=== PATIENT | female | born 1990 | race American Indian/Alaskan Native ===

== ENCOUNTER 2016-12-27 19:02 | Emergency (ER) | payer OTHER ==
--- NOTE | 2016-12-28 02:01 | Emergency Department Report ---
HPI - General Chief Complaint: Fall Time Seen by Provider: 12/28/16 01:24 - HPI HPI: Patient is a 26-year-old female who's come presents to the ED complaining all fall earlier today. Patient states she was at a friend's house and coming down some steps when she slipped and fell on her butt. Patient she says she fell down about 5 steps. Patient denies loss of consciousness. Patient states she has intermittently, nonradiating, throbbing type pain localized to her lower back. Patient denies fevers/chills/chest pain/shortness of breath/dizziness/abrasions or cuts or any other problems. ED Past Medical Hx - Social History Smoking Status: Current Every Day Smoker Substance Use Type: None - Medications Home Medications: Home Medications Medication Instructions Recorded Confirmed Last Taken Type Clindamycin [Clindamycin CAP] 300 mg PO Q12H #14 capsule 06/22/14 Unknown Rx HYDROcodone/APAP 10-325 [[place] 1 each PO Q6HR PRN #12 tablet 06/22/14 Unknown Rx 10-325 mg TAB] Cyclobenzaprine [Flexeril] 10 mg PO TID PRN #20 tablet 12/28/16 Unknown Rx Ibuprofen [Motrin] 800 mg PO Q8HR PRN #30 tablet 12/28/16 Unknown Rx ED Review of Systems ROS: Stated complaint: FALL/BACK PAIN Other details as noted in HPI Constitutional: denies: chills, fever, weakness Eyes: denies: eye pain, eye discharge, vision change ENT: denies: ear pain, throat pain Respiratory: denies: cough, shortness of breath, wheezing Cardiovascular: denies: chest pain, palpitations Endocrine: no symptoms reported Gastrointestinal: denies: abdominal pain, nausea, diarrhea, melena Genitourinary: denies: urgency, dysuria, frequency, hematuria, discharge Musculoskeletal: denies: back pain, joint swelling, arthralgia Skin: denies: rash, lesions, pruritus Neurological: denies: headache, weakness, numbness, paresthesias, confusion, abnormal gait Psychiatric: denies: anxiety, depression Hematological/Lymphatic: denies: easy bleeding, easy bruising Physical Exam - Physical Exam Vital Signs: Vital Signs 12/27/16 19:47 Temperature 98 F Pulse Rate 90 Respiratory 18 Rate Blood Pressure 122/76 O2 Sat by Pulse 99 Oximetry Physical Exam: GENERAL: Alert and oriented x3, no apparent distress, Normal Gait, atraumatic. HEAD: Head is normocephalic and a-traumatic. EYES: Extra ocular muscles are intact. Pupils are equal, round, and reactive to light and accommodation. EARS: symetrical, gross auditory nml bilaterally. NOSE: Nose symetrical, Nontender,Nares appeared normal. MOUTH:Mouth is well hydrated and without lesions. Patent airways. NECK: Supple. Non edematous, No carotid bruits. No lymphadenopathy or thyromegaly. LUNGS: Symetrical with respiration, No wheezing, no rales or crackles, CTAB. HEART: S1, S2 present, regular rate and rhythm without murmur, no rubs, no gallops. ABDOMEN: No organomegaly was noted,Positive bowel sounds, soft, and non- distended. . Nontender to palpation on all Quadrants, NO CVA tenderness. BACK: Tenderness to palpation of the latissimus dorsi muscles of the lower back. Tenderness to palpation of the lumbar sacral spine. Full range of motion limited by pain. EXTREMITIES/MUSCULOSKELETAL: No cyanosis, clubbing, rash, lesions or edema. Full ROM bilaterally. UE Pulses 2+ bilaterally. LE and UE 5+ strength bilaterally. Straight leg raise negative. NEUROLOGIC: No focal Deficit, Cranial nerves II through XII are grossly intact. No loss of sensation, PSYCHIATRIC: Mood is congruent with affect, denies suicidal or homicidal ideations. SKIN: Warm and dry, No lesions, No ulceration or induration present. ED Course Vital Signs 12/27/16 19:47 Temperature 98 F Pulse Rate 90 Respiratory 18 Rate Blood Pressure 122/76 O2 Sat by Pulse 99 Oximetry ED Medical Decision Making - Radiology Data Radiology results: report reviewed, image reviewed FINAL REPORT EXAM: XR SPINE LUMBOSACRAL 2-3V HISTORY: fall on back/pain COMPARISON: None available. FINDINGS: Three views of the lumbar spine obtained. Lumbar vertebral body heights and disc heights are preserved. No spondylolisthesis. Pedicles are grossly intact. IMPRESSION: Normal height and alignment of the lumbar spine. Transcribed By: LMA Dictated By: VELIA MARMOLEJO MD Electronically Authenticated By: VELIA MARMOLEJO MD Signed Date/Time: 12/28/16 1694 - Medical Decision Making 26-year-old female presents with low back pain secondary to fall ED course: Lumbosacral x-ray ordered. 2 tablets of Tylenol 3 given. X-ray report shows - See above Discussed findings with patient. Discussed home medications of Motrin and Flexeril for pain. Discussed heat application to back Discussed patient to follow up with primary care physician. Vital signs stable patient is in no acute or respiratory distress Critical care attestation.: If time is entered above; I have spent that time in minutes in the direct care of this critically ill patient, excluding procedure time. ED Disposition Clinical Impression: Fall Qualifiers: Encounter type: initial encounter Qualified Code(s): W19.XXXA - Unspecified fall, initial encounter Low back pain Qualifiers: Chronicity: acute Back pain laterality: bilateral Sciatica presence: without sciatica Qualified Code(s): M54.5 - Low back pain Disposition: DISCHARGED TO HOME OR SELFCARE Is pt being admited?: No Does the pt Need Aspirin: No Condition: Stable Instructions: Trigger Point Pain (ED), Musculoskeletal Pain (ED), Heat Pack Application (ED), Fall Prevention (ED) Prescriptions: Cyclobenzaprine [Flexeril] 10 mg PO TID PRN #20 tablet PRN Reason: Muscle Spasm Ibuprofen [Motrin] 800 mg PO Q8HR PRN #30 tablet PRN Reason: Pain Referrals: PRIMARY CARE, [Primary Care Provider] - 3-5 Days ANDREW VEGA MD [Referring] - 3-5 Days [facility] [Outside] - 3-5 Days [facility] [Outside] - 3-5 Days [facility] [Outside] - 3-5 Days Forms: Work/School Release Form(ED) Time of Disposition: 03:55
[2016-12-28] MEDS ORDERED: TYLENOL #3 PO ONE (02:50)
[2016-12-28] MEDS ORDERED: NORCO 10/325 ONE (03:26)
--- NOTE | 2016-12-28 03:37 | XRay Report ---
FINAL REPORT EXAM: XR SPINE LUMBOSACRAL 2-3V HISTORY: fall on back/pain COMPARISON: None available. FINDINGS: Three views of the lumbar spine obtained. Lumbar vertebral body heights and disc heights are preserved. No spondylolisthesis. Pedicles are grossly intact. IMPRESSION: Normal height and alignment of the lumbar spine.
[2016-12-28 04:21] VITALS: BP 119/84
[2016-12-28] MEDS ORDERED: NORCO 10/325 PO ONE (04:26)
== END 2016-12-28 04:18 | disposition home or self-care (01) ==
LOC: ED 19:02
DX: M54.5 Low back pain (principal); F17.200 Nicotine dependence, unspecified, uncomplicated; W01.0XXA Fall on same level from slipping, tripping and stumbling without subsequent striking against object, initial encounter; Y93.01 Activity, walking, marching and hiking; Y92.009 Unspecified place in unspecified non-institutional (private) residence as the place of occurrence of the external cause; Y99.8 Other external cause status
CPT/HCPCS: 36415; 72100; 84703